=== PATIENT | female | born 1995 | race Caucasian/White ===

== ENCOUNTER → 2019-11-26 | Outpatient (CLI) | payer OTHER ==
--- NOTE | 2019-11-26 09:20 | RAD ---
OB <14 WKS W/TV History: First trimester Comparison: None. Findings: Multiple transabdominal and transvaginal sonographic images of the pelvis are submitted. There is a single intrauterine gestational sac, identifiable pole and demonstrable cardiac activity 168 bpm. Gestational sac morphology is within normal limits. There is visible yolk sac.There is another small approximate 0.4 cm focus of echogenicity in the gestational sac. [place]-rump length measurement of 1.68 cm corresponds with 8 weeks 1 day. Adjusted ultrasound age is 8 weeks 1 day with estimated delivery date of 07/06/2020. LMP age is 7 weeks 6 days with estimated delivery date 07/08/2020. There is a focus of different hypoechogenicity of the uterus near the gestational sac about 1.4 x 2.5 x 1 cm. Right maternal ovary measured 3.3 x 2.8 x 2.2 cm. Left maternal ovary measured 4 x 3.1 x 2.3 cm. There is normal low resistance vascularity of the ovaries bilaterally. Impression: 1. There is a single viable intrauterine , demonstrable cardiac activity. Adjusted ultrasound age is 8 weeks 1 day with estimated delivery date of 07/06/2020. There is a small focus of nonspecific echogenicity in the gestational sac, potentially could be sequela of single demise of previous twin although not certain. There is a small focus of hypoechogenicity near the gestational sac likely sequela of subchorionic hemorrhage. Electronically signed by: Ken Covarrubias MD (11/26/2019 9:17 AM) [id number]
[2019-11-26 11:25] LABS: BASO % 0 % (0-3); EOS # 0.1 x10^3/uL (0.0-0.7); EOS % 2 % (0-3); HEMATOCRIT 41.2 % (36.0-47.0); HEMOGLOBIN 13.8 g/dL (12.0-15.5); LYMPH # 1.5 x10^3/uL (1.0-4.8); LYMPH % 21 % (24-48); MEAN CORPUSCULAR HEMOGLOBIN 29 pg (25-35); MEAN CORPUSCULAR HGB CONC 34 g/dL (31-37); MEAN CORPUSCULAR VOLUME 87 fL (79-100); MONO # 0.4 x10^3/uL (0.0-1.1); MONO % 6 % (0-9); NEUT % 70 % (31-73); PLATELET COUNT 247 x10^3/uL (140-400); RED BLOOD COUNT 4.72 x10^6/uL (3.50-5.40); RED CELL DISTRIBUTION WIDTH 13.3 % (11.5-14.5); WHITE BLOOD COUNT 7.1 x10^3/uL (4.0-11.0)
[2019-11-26 14:22] LABS: FREE T4 1.06 ng/dL (0.76-1.46); THYROID STIM HORMONE (TSH) 0.223 uIU/mL (0.358-3.740)
[2019-11-27 15:08] LABS: RUBELLA IGG ANTIBODY 3.51 index (Immune >0.99)
== END | disposition home or self-care (01) ==
LOC: US 07:52
PROVIDERS: ATTEND Obstetrics & Gynecology
DX: Z34.91 Encounter for supervision of normal pregnancy, unspecified, first trimester (principal); Z3A.08 8 weeks gestation of pregnancy
CPT/HCPCS: 76801; 76817; 81220; 84439; 84443; 85025; 86592; 86703; 86762; 86787; 86803; 86850; 86900; 86901; 87340

== ENCOUNTER → 2020-02-13 | Outpatient (CLI) | payer OTHER ==
--- NOTE | 2020-02-13 09:29 | RAD ---
OB ultrasound greater than 14 weeks 02/14/2020 Clinical History: survey. Technique: A real-time ultrasound examination of the gravid uterus was performed. Multiple images were obtained. Findings: Comparison study is dated 11/26/2019. There is a single living IUP. The fetus is in a variable position. cardiac and somatic activity is seen. The heart rate is 155 beats per minutes. The maternal cervix is closed. It measures 4.8 cm in length. The placenta is anterior. A hypoechoic area seen within the central aspect of the placenta which measures 2.3 cm in size. This likely represents a placental saab. The amniotic fluid volume is within normal limits. Neither maternal ovary is visualized. No adnexal mass is seen. The following measurements were obtained: BPD 4.5cm 19 weeks 4 days HC 17.7 cm 20weeks 1 days AC 15.9 cm 21weeks 0 days FL 2.9 cm 18 weeks 6 days The estimated gestational age by ultrasound is 19 weeks 6 days plus or minus a standard deviation of 10 days. The estimated date of delivery by ultrasound on today's study is 07/03/2020. Since the previous examination there has been appropriate interval growth. No abnormality is seen. Specifically the stomach, bladder, kidneys, 3 vessel cord and cord insertion, four-chamber heart, cisterna magna, cerebellum, nose/mouth, and extremities are well-visualized and within normal limits. Impression: Single living IUP with an estimated gestational age by ultrasound of 19 weeks6 days +/- a standard deviation of 10 days. The estimated date of delivery by ultrasound is 07/03/2020. Electronically signed by: Tremayne Amado MD (02/13/2020 9:27 AM) [id number]
== END ==
LOC: US 07:54
PROVIDERS: ATTEND Obstetrics & Gynecology
DX: Z34.92 Encounter for supervision of normal pregnancy, unspecified, second trimester (principal); Z3A.19 19 weeks gestation of pregnancy
CPT/HCPCS: 76805

== ENCOUNTER → 2020-04-20 | Outpatient (CLI) | payer BC ==
[2020-04-20 16:15] LABS: BASO % 0 % (0-3); EOS # 0.1 x10^3/uL (0.0-0.7); EOS % 1 % (0-3); HEMATOCRIT 35.3 % (36.0-47.0); LYMPH # 1.8 x10^3/uL (1.0-4.8); LYMPH % 16 % (24-48); MEAN CORPUSCULAR HEMOGLOBIN 30 pg (25-35); MEAN CORPUSCULAR HGB CONC 34 g/dL (31-37); MEAN CORPUSCULAR VOLUME 88 fL (79-100); MONO # 0.4 x10^3/uL (0.0-1.1); MONO % 4 % (0-9); NEUT # 8.8 x10^3uL (1.8-7.7); NEUT % 79 % (31-73); PLATELET COUNT 226 x10^3/uL (140-400); RED BLOOD COUNT 4.02 x10^6/uL (3.50-5.40); RED CELL DISTRIBUTION WIDTH 12.9 % (11.5-14.5); WHITE BLOOD COUNT 11.1 x10^3/uL (4.0-11.0)
[2020-04-21 19:19] LABS: FREE T4 0.9 ng/dL (0.76-1.46); THYROID STIM HORMONE (TSH) 0.278 uIU/mL (0.358-3.740)
== END ==
LOC: LAB 13:57
PROVIDERS: ATTEND Obstetrics & Gynecology
DX: Z34.93 Encounter for supervision of normal pregnancy, unspecified, third trimester (principal); Z3A.00 Weeks of gestation of pregnancy not specified
CPT/HCPCS: 36415; 82950; 84439; 84443; 85025; 86850; 86900; 86901

== ENCOUNTER → 2020-04-27 | Outpatient (CLI) | payer BC | LOC: LAB 07:41 | PROVIDERS: ATTEND Obstetrics & Gynecology | DX: Z34.93 Encounter for supervision of normal pregnancy, unspecified, third trimester (principal); Z3A.00 Weeks of gestation of pregnancy not specified | CPT/HCPCS: 36415; 82951 ==

== ENCOUNTER → 2020-07-27 | Outpatient (CLI) | payer BC ==
[2020-07-28 21:53] LABS: FREE T4 1.02 ng/dL (0.76-1.46); THYROID STIM HORMONE (TSH) 0.466 uIU/mL (0.358-3.740)
== END ==
LOC: LAB 14:34
PROVIDERS: ATTEND Obstetrics & Gynecology
DX: Z39.2 Encounter for routine postpartum follow-up (principal)
CPT/HCPCS: 84439; 84443

== ENCOUNTER → 2021-03-22 | Outpatient (CLI) | payer OTHER ==
[2021-03-22 16:16] LABS: HEMATOCRIT 41.4 % (36.0-47.0); HEMOGLOBIN 13.5 g/dL (12.0-15.5); RED BLOOD COUNT 4.92 x10^6/uL (3.50-5.40); RED CELL DISTRIBUTION WIDTH 13.9 % (11.5-14.5); WHITE BLOOD COUNT 8.2 x10^3/uL (4.0-11.0)
== END ==
LOC: LAB 15:29
PROVIDERS: ATTEND Obstetrics & Gynecology
DX: E03.9 Hypothyroidism, unspecified (principal)
CPT/HCPCS: 36415; 84443; 85027